=== PATIENT | male | born 1960 | race Hispanic/Latino ===

== ENCOUNTER 2024-03-11 23:01 | Emergency (ER) | payer MEDICARE, OTHER ==
[~2024-03-11] VITALS: Ht 172.7 cm; Wt 81.6 kg
--- NOTE | 2024-03-11 23:12 | NUR ---
PATIENT REPORTS FELT IF SOMETHING BIT HIM LAST NIGHT AND HAD ITCHING TO R HAND. TODAY HAS BEEN HAVING PAIN AND SWELLING TO R HAND. REDNESS NOTED TO HAND
[2024-03-11 23:30] LABS: BASOPHILS # (AUTO) 0.05 K/uL (0.00-0.20); BASOPHILS % (AUTO) 0.5 % (0.0-5.0); EOSINOPHILS # (AUTO) 0.32 K/uL (0.00-0.70); EOSINOPHILS % (AUTO) 3.3 % (0.0-8.0); HEMATOCRIT 38.5 % (42-54); IMMATURE GRANULOCYTE ABSOLUTE 0.02 K/uL (0-1); LYMPHOCYTES # (AUTO) 2.8 K/uL (1.0-4.8); LYMPHOCYTES % (AUTO) 28.6 % (21.0-51.0); MEAN CORPUSCULAR HEMOGLOBIN 28.6 pg (27.0-33.0); MEAN CORPUSCULAR HGB CONC 32.5 g/dL (32.0-36.0); MEAN CORPUSCULAR VOLUME 88.1 fL (79-99); MONOCYTES # (AUTO) 0.9 K/uL (0.1-1.0); MONOCYTES % (AUTO) 9.3 % (3.0-13.0); NEUTROPHILS # (AUTO) 5.7 K/uL (1.8-7.7); NEUTROPHILS % (AUTO) 58.1 % (40.0-77.0); PLATELET COUNT (AUTO) 340 K/uL (130-400); RED BLOOD CELL COUNT(AUTO) 4.37 MIL/uL (4.50-6.20); RED CELL DISTRIBUTION WIDTH 13.3 % (11.0-15.5); WHITE BLOOD COUNT (AUTO) 9.8 K/uL (4.8-10.8)
[2024-03-11] MEDS: ketOROlac 15MG/ML VIAL (15MG/ML) IV ONE (23:37)
[2024-03-11] MEDS: dexaMETHasone SOD PHOSPHATE 4 MG/ML 1ML VIAL IVP ONE (23:38)
[2024-03-11 23:40] LABS: CREATININE 1.2 mg/dL (0.5-1.3); POTASSIUM 4.1 mmol/L (3.5-5.1)
[2024-03-11 23:43] LABS: URIC ACID 5.5 mg/dL (2.6-7.2)
[2024-03-12 00:25] VITALS: BP 141/69; PULSE 69; RESP 18; TEMP 98.4; O2SAT 99
[2024-03-12] MEDS ORDERED: KETO10TA2 PO (00:33)
[2024-03-12] MEDS ORDERED: SULF1TAB42 PO (00:33)
--- NOTE | 2024-03-12 00:35 | ERN ---
General Chief Complaint: Hand Problem/Injury Stated Complaint: RT HAND PAIN Time Seen by MD: 23:12 Time Seen by Midlevel: 23:12 Source: patient History of Present Illness Initial Comments Patient is a 63-year-old male presenting to the emergency department with pain to his right hand. Patient states the pain started on March 10, 2024. He initially noticed an insect bite at the base of his thumb and later noticed some redness to the area. The pain started two days ago and has progressively worsened. Today the pain became unbearable so he decided to report to the ER for further evaluation. The pain is worse with movement of the right thumb. Patient denies any fever, chills, or any other symptoms at this time. Denies any direct injury to the area. Allergies: Coded Allergies: No Known Allergies (Unverified Allergy, Unknown, 03/11/24) Home Meds Active Scripts Ketorolac Tromethamine (Ketorolac Tromethamine) 10 Mg Tablet, 10 MG PO BID for 5 Days, #10 TAB Prov:EDITH QURESHI 03/12/24 Sulfamethoxazole/Trimethoprim (Bactrim Ds Tablet) 800 Mg-160 Mg Tablet, 1 TAB PO BID for 7 Days, #14 TAB 0 Refills Prov:EDITH QURESHI 03/12/24 Past Medical History Past Medical History: Diabetes-Type II Past Surgical History: Other Surgical History Other: HERNIA, BACK ROS Dictation CONSTITUTIONAL: Negative except for HPI HEAD/FACE: Negative except for HPI EENT: Negative except for HPI RESPIRATORY: Negative except for HPI GASTROINTESTINAL/ABDOMINAL: Negative except for HPI GENITOURINARY: Negative except for HPI MUSCULOSKELETAL: Negative except for HPI INTEGUMENTARY: Negative except for HPI NEUROLOGICAL/PSYCH: Negative except for HPI HEMATOLOGIC/LYMPHATIC: Negative except for HPI All Systems Negative, Except as noted above. 13 point review of systems assessed and all negative except for above. Physical Exam Physical Exam Dictation PHYSICAL EXAM: GENERAL: alert,, awake oriented x 3 HEENT: EOMI, Sclera non icteric, moist mucosa NECK: Supple, no JVD, trachea midline LUNGS: Clear breath sounds bilaterally. No wheezes HEART: Regular rate and rhythm. Normal S1 and S2, without murmurs ABD: Abdomen soft, nontender. Bowel sounds present EXT: There was a small amount of erythema to the right hand just below the base of the right thumb, there is painful range of motion of the right thumb, there was no overlying tenderness, there is some mild tenderness at the base of the thumb. NEURO: Alert and oriented to person, follows commands Results Laboratory and Microbiology Lab and Micro Result Laboratory Tests Test 03/11/24 23:22 White Blood Count 9.8 K/uL (4.8-10.8) Red Blood Count 4.37 MIL/uL (4.50-6.20) L Hemoglobin 12.5 g/dL (14.0-18.0) L Hematocrit 38.5 % (42-54) L Mean Corpuscular Volume 88.1 fL (79-99) Mean Corpuscular Hemoglobin 28.6 pg (27.0-33.0) Mean Corpuscular Hemoglobin Concent 32.5 g/dL (32.0-36.0) Red Cell Distribution Width 13.3 % (11.0-15.5) Platelet Count 340 K/uL (130-400) Mean Platelet Volume 10.2 fL (7.5-10.5) Immature Granulocyte % (Auto) 0.2 % (0-1) Neutrophils (%) (Auto) 58.1 % (40.0-77.0) Lymphocytes (%) (Auto) 28.6 % (21.0-51.0) Monocytes (%) (Auto) 9.3 % (3.0-13.0) Eosinophils (%) (Auto) 3.3 % (0.0-8.0) Basophils (%) (Auto) 0.5 % (0.0-5.0) Neutrophils # (Auto) 5.7 K/uL (1.8-7.7) Lymphocytes # (Auto) 2.8 K/uL (1.0-4.8) Monocytes # (Auto) 0.9 K/uL (0.1-1.0) Eosinophils # (Auto) 0.32 K/uL (0.00-0.70) Basophils # (Auto) 0.05 K/uL (0.00-0.20) Absolute Immature Granulocyte (auto 0.02 K/uL (0-1) Nucleated Red Blood Cells 0.0 % (0.0-0.19) Sodium Level 139 mmol/L (136-145) Potassium Level 4.1 mmol/L (3.5-5.1) Chloride Level 104 mmol/L (101-111) Carbon Dioxide Level 28 mmol/L (21-32) Blood Urea Nitrogen 17 mg/dL (7-18) Creatinine 1.2 mg/dL (0.5-1.3) Glomerular Filtration Rate Calc 68 mL/min (>90) Random Glucose 200 mg/dL (70-105) H Lactic Acid Level 1.8 mmol/L (0.8-2.5) Uric Acid 5.5 mg/dL (2.6-7.2) Total Calcium 8.8 mg/dL (8.5-10.1) Procalcitonin < 0.05 ng/mL (0.05-0.5) L Labs Reviewed?: Yes MDM MDM: Patient is a 63-year-old male presenting to the emergency department with p ain to his right hand. Patient states the pain started on March 10, 2024. He initially noticed an insect bite at the base of his thumb and later noticed some redness to the area. The pain started two days ago and has progressively worsened. Today the pain became unbearable so he decided to report to the ER for further evaluation. The pain is worse with movement of the right thumb. Patient denies any fever, chills, or any other symptoms at this time. Denies any direct injury to the area. On physical examination there was a small amount of erythema to the right hand just below the base of the right thumb, there is painful range of motion of the right thumb, there was no overlying tenderness, there is some mild tenderness at the base of the thumb. His physical examination is suspicious for a cellulitis versus gout. An x-ray of the right hand was obtained to rule out any acute fracture however x-ray does not show any acute fracture or dislocation. There was no soft tissue swelling seen. His CBC does not show any leukocytosis. His chemistries unremarkable. Lactic and procalcitonin are negative. Uric acid level is normal. And believes this may be the start of a cellulitis. Patient was given Toradol, morphine, and dexamethasone in the emergency department for supportive management. He was also started on Rocephin IV in the ER. He will be sent home with a prescription for Bactrim to treat any possible cellulitis. He was advised to follow up with his primary care doctor in 2-3 days for repeat evaluation or return to the emergency department for any new or worsening symptoms. Differential diagnosis: Cellulitis, erysipelas, fracture, dislocation, gout There are no social concerns with this patient. Prescription drug management Prescriptions will include: Bactrim and Toradol Medical management and examination interpretation discussions were had by me with other qualified healthcare professionals as indicated for the patient's care. ED Course Orders Procedure Category Date Status Time Hand 3+Vws Rt RAD 03/11/24 Taken 23:04 Cbc With Differential LAB 03/11/24 Complete 23:13 Basic Metabolic Panel LAB 03/11/24 Complete 23:13 Lactic Acid LAB 03/11/24 Complete 23:13 Procalcitonin LAB 03/11/24 Complete 23:13 Ketorolac PHA 03/11/24 Complete Tromethamine 15mg/Ml 23:30 Dexamethasone 4mg/Ml PHA 03/11/24 Complete 1ml Vial (Dexametha 23:30 Uric Acid LAB 03/11/24 Complete 23:22 Morphine 2mg Syg PHA 03/12/24 Complete (Morphine 2mg Syg) 00:30 Ceftriaxone 1g Vial PHA 03/12/24 Complete (Rocephine 1g Inj) 00:30 Current Medications Medications (Trade) Dose Ordered Sig/Keysha Route PRN Reason Start Time Stop Time Status Last Admin Dose Admin Ceftriaxone Sodium (ROCEphine 1G INJ) 1 gm ONCE ONCE IVPB 03/12/24 00:30 03/12/24 00:31 DC 03/12/24 00:36 Dexamethasone Sodium Phosphate (dexaMETHasone 4MG/ML 1ML VIAL) 6 mg ONCE ONCE IVP 03/11/24 23:30 03/11/24 23:31 DC 03/11/24 23:38 Ketorolac Tromethamine (toRADol) 15 mg ONCE ONCE IV 03/11/24 23:30 03/11/24 23:31 DC 03/11/24 23:37 Morphine Sulfate (morPHINE 2MG SYG) 2 mg ONCE ONCE IVP 03/12/24 00:30 03/12/24 00:31 DC 03/12/24 00:36 Vital Signs Date Time Temp Pulse Resp B/P (MAP) Pulse Ox O2 Delivery O2 Flow Rate FiO2 03/12/24 00:25 98.4 69 18 141/69 99 Room Air* 0 21 03/11/24 23:03 97.9 85 18 172/85 98 Room Air DX & DISP Disposition: Discharge Departure Impression: Primary Impression: Cellulitis of right hand Condition: Stable Scripts Ketorolac Tromethamine (Ketorolac Tromethamine) 10 Mg Tablet 10 MG PO BID for 5 Days, #10 TAB Prov: EDITH QURESHI 03/12/24 Sulfamethoxazole/Trimethoprim (Bactrim Ds Tablet) 800 Mg-160 Mg Tablet 1 TAB PO BID for 7 Days, #14 TAB 0 Refills Prov: EDITH QURESHI 03/12/24 Additional Instructions: Your blood work today is unremarkable. Your x-ray of the right hand does not show any acute fracture or dislocation. It appears your symptoms are most likely related to the start of a skin infection. You were given IV antibiotics in the emergency department. I have given you a prescription for oral antibiotics and pain medicine for outpatient management. Follow up with your primary care doctor in 2-3 days for repeat evaluation. Return to the ER for any new or worsening symptoms. Referrals: CHARLEY AVINA MD Time of Disposition: 00:33 I have reviewed the case, and I agree with, Diagnosis and Plan I performed the substantive portion of the visit. I have reviewed and personally made and approve the management plan that is documented in the note by myself or the FARZANEH. I acknowledge for responsibility for the patient's management plan. EDITH QURESHI Mar 12, 2024 00:35
[2024-03-12] MEDS: cefTRIAXone 1G VIAL IVPB ONE (00:36)
[2024-03-12] MEDS: morPHINE 2 MG SYG IVP ONE (00:36)
--- NOTE | 2024-03-12 08:33 | HMCIMG ---
HAND 3+VWS RT REASON: HAND SWELLING/PAIN WRIST TECHNIQUE: 3 views were obtained. FINDINGS: There is no evidence of fracture or dislocation. There is no joint effusion. The soft tissues appear unremarkable. There is no evidence of a radiopaque foreign body. 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 IMPRESSION: No acute findings.
== END 2024-03-12 00:48 | disposition home or self-care (01) ==
LOC: EDH 23:01
DX: L03.113 Cellulitis of right upper limb (principal); E11.9 Type 2 diabetes mellitus without complications; Z79.899 Other long term (current) drug therapy; Z98.890 Other specified postprocedural states
CPT/HCPCS: 99284; 96374; 96375 ×2; 84550; 80048; 85025; 83605; 36415; 73130; 84145; J1100; J1885; J2270; J0696

== ENCOUNTER 2024-12-16 13:25 | Emergency (ER) | payer OTHER ==
[~2024-12-16] VITALS: Ht 172.7 cm; Wt 81.6 kg
[~2024-12-16 13:25] MED LIST: KETO10TA2 PO; SULF1TAB42 PO
--- NOTE | 2024-12-16 14:40 | HMCIMG ---
EXAM: CR right Hand, 3 View. CLINICAL HISTORY: r/o fb COMPARISON: None provided. FINDINGS: BONES: No acute fracture or aggressive appearing osseous lesion. JOINTS: No evidence of dislocation. The joint spaces are normal. SOFT TISSUES: Several ill-defined triangular/punctate foreign bodies at the base of the laceration in the thenar soft tissues IMPRESSION: Several ill-defined triangular/punctate foreign bodies at the base of the laceration in the thenar soft tissues /[place]
[2024-12-16] MEDS: BACITRACIN 1 EACH PACKET TP ONE (15:13)
--- NOTE | 2024-12-16 15:13 | ERN ---
General Chief Complaint: Hand Problem/Injury Stated Complaint: RT HAND INJURY Time Seen by MD: 13:30 Time Seen by Midlevel: 13:30 Source: patient History of Present Illness Initial Comments Patient is a 64-year-old male presenting to ER for a wound evaluation. The patient states he was using a bark grinder when it accidentally cut his right hand. Patient immediately reported to the ER for further evaluation. Patient is not up-to-date with tetanus vaccination. Allergies: Coded Allergies: No Known Allergies (Unverified Allergy, Unknown, 03/11/24) Home Meds Active Scripts Ketorolac Tromethamine (Ketorolac Tromethamine) 10 Mg Tablet, 10 MG PO BID for 5 Days, #10 TAB Prov:EDITH QURESHI 03/12/24 Sulfamethoxazole/Trimethoprim (Bactrim Ds Tablet) 800 Mg-160 Mg Tablet, 1 TAB PO BID for 7 Days, #14 TAB 0 Refills Prov:EDITH QURESHI 03/12/24 Past Medical History Past Medical History: Diabetes-Type II Past Surgical History: Other Surgical History Other: HERNIA, BACK ROS Dictation CONSTITUTIONAL: Negative except for HPI HEAD/FACE: Negative except for HPI EENT: Negative except for HPI RESPIRATORY: Negative except for HPI GASTROINTESTINAL/ABDOMINAL: Negative except for HPI GENITOURINARY: Negative except for HPI MUSCULOSKELETAL: Negative except for HPI INTEGUMENTARY: Negative except for HPI NEUROLOGICAL/PSYCH: Negative except for HPI HEMATOLOGIC/LYMPHATIC: Negative except for HPI All Systems Negative, Except as noted above. 13 point review of systems assessed and all negative except for above. Physical Exam Physical Exam Dictation PHYSICAL EXAM: GENERAL: alert,, awake oriented x 3 HEENT: EOMI, Sclera non icteric, moist mucosa NECK: Supple, no JVD, trachea midline LUNGS: Clear breath sounds bilaterally. No wheezes HEART: Regular rate and rhythm. Normal S1 and S2, without murmurs ABD: Abdomen soft, nontender. Bowel sounds present EXT: There is a wound between the right 1st 2nd digit NEURO: Alert and oriented to person, follows commands MDM MDM: Differential diagnosis: Retained foreign body, fracture, laceration, tendon laceration There are no social concerns with this patient. Prescription drug management Prescriptions will include: Augmentin and Toradol Medical management and examination interpretation discussions were had by me with other qualified healthcare professionals as indicated for the patient's care. ED Course Orders Procedure Category Date Status Time Tetanus,Diphtheria PHA 12/16/24 Complete Tox [Adult] (Diphther 13:30 Hand 3+Vws Rt RAD 12/16/24 Resulted 13:30 *Nursing CPOE 12/16/24 Transmitted Communication: 13:30 Bacitracin PHA 12/16/24 Complete (Bacitracin) 15:02 Hydrocodone/Apap PHA 12/16/24 Complete 5/325 ([place] 5/325mg) 15:30 Hydrocodone/Apap PHA 12/16/24 Complete 5/325 ([place] 5/325mg) 15:31 Current Medications Medications (Trade) Dose Ordered Sig/Keysha Route PRN Reason Start Time Stop Time Status Last Admin Dose Admin Acetaminophen/ Hydrocodone Bitart (NORco 5/325MG) 1 tab ONCE ONCE PO 12/16/24 15:30 12/16/24 15:42 DC Acetaminophen/ Hydrocodone Bitart (NORco 5/325MG) 1 tab STK-MED ONCE .ROUTE 12/16/24 15:31 12/16/24 15:31 DC Bacitracin (Bacitracin) 1 each STK-MED ONCE TP 12/16/24 15:02 12/16/24 15:03 DC 12/16/24 15:13 Tetanus/ Diphtheria Toxoids Adsorbed (DiphthERIA-teTANUS TOXOID [ADULT]/ DECAVAC) 0.5 ml ONCE ONCE IM 12/16/24 13:30 12/16/24 13:35 DC 12/16/24 15:12 Vital Signs Date Time Temp Pulse Resp B/P (MAP) Pulse Ox O2 Delivery O2 Flow Rate FiO2 12/16/24 15:21 98.6 90 20 157/79 98 Room Air* 0 21 12/16/24 13:28 98.6 112 20 164/86 98 Room Air DX & DISP Disposition: Discharge Departure Impression: Primary Impression: Open wound of right hand Condition: Stable Scripts Mupirocin (Mupirocin Ointment) 2 % Oint 1 APPL TP TID for 7 Days, #22 GM 0 Refills apply to affected area(s) Prov: EDITH QURESHI 12/16/24 Amoxicillin/Potassium Clav (Amox Tr-K Clv 875-125 mg Tab) 875 Mg-125 Mg Tablet 1 EACH PO BID for 7 Days, #14 TAB 0 Refills Prov: EDITH QURESHI 12/16/24 Additional Instructions: Your wound was successfully claim in the emergency department. Your x-ray does not show injury to your bone. There was no evidence of a tendon laceration. Your wound appears to be superficial and will heal from the inside out. I have prescribed oral antibiotics to prevent an infection. You were also given a tetanus vaccination in the ER. I have also prescribed a topical ointment which should prevent a superficial skin infection. Referrals: DECLAN CAMPBELL MD (PCP) I have reviewed the case, and I agree with, Diagnosis and Plan I performed the substantive portion of the visit. I have reviewed and personally made and approve the management plan that is documented in the note by myself or the FARZANEH. I acknowledge for responsibility for the patient's management plan. EDITH QURESHI Dec 16, 2024 15:13
[2024-12-16 15:21] VITALS: BP 157/79; PULSE 90; RESP 20; TEMP 98.6; O2SAT 98
[2024-12-16] MEDS ORDERED: AMOX1TAB16 PO (15:50)
[2024-12-16] MEDS ORDERED: MUPI22OI2 TP (15:50)
[2024-12-16] MEDS: HYDROcodone/APAP 5/325 1 TAB TABLET PO ONE (16:05)
[2024-12-16] MEDS: HYDROcodone/APAP 5/325 1 TAB TABLET ONE (16:05)
== END 2024-12-16 16:08 | disposition home or self-care (01) ==
LOC: EDH 13:25
DX: S61.411A Laceration without foreign body of right hand, initial encounter (principal); E11.9 Type 2 diabetes mellitus without complications; W31.89XA Contact with other specified machinery, initial encounter; Y93.89 Activity, other specified; Y92.89 Other specified places as the place of occurrence of the external cause; Y99.8 Other external cause status
CPT/HCPCS: 12002; 73130; 90471; 90714; 99283